=== PATIENT | male | born 1995 | race Asian ===

== ENCOUNTER 2022-04-24 03:35 | Emergency (ER) | payer SELFPAY ==
[~2022-04-24] VITALS: Ht 165.1 cm; Wt 63.5 kg
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
--- NOTE | 2022-04-24 03:57 | NUR ---
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
[2022-04-24] MEDS ORDERED: IBUPROFEN 400 MG TABLET PO ONE (04:00)
[2022-04-24] MEDS ORDERED: IBUPROFEN 400 MG TABLET ONE (04:00)
[2022-04-24] MEDS ORDERED: IBUP-1957 PO (04:05)
[2022-04-24 05:37] VITALS: BP 118/74
--- NOTE | 2022-04-24 05:37 | NUR ---
Patient discharged to home in stable condition. Written and verbal after care instructions given. Patient verbalizes understanding of instruction.
== END 2022-04-24 05:38 | disposition home or self-care (01) ==
LOC: ER 03:42
DX: S13.4XXA Sprain of ligaments of cervical spine, initial encounter (principal); S39.012A Strain of muscle, fascia and tendon of lower back, initial encounter; V49.49XA Driver injured in collision with other motor vehicles in traffic accident, initial encounter; Y93.89 Activity, other specified; Y92.413 State road as the place of occurrence of the external cause; Y99.8 Other external cause status
CPT/HCPCS: 72050-TC; 72110-TC